=== PATIENT | female | born 1950 | race Two or more races ===

== ENCOUNTER 2023-10-08 08:30 | Inpatient (IN) | payer OTHER ==
[2023-10-08] MEDS ORDERED: TOPROL XL50 M1 (10:02)
[2023-10-08] MEDS ORDERED: PLAVIX75 MG (10:03)
[2023-10-08] MEDS ORDERED: NEBIVOLOL (10:03)
[2023-10-08 11:20] LABS: HEMATOCRIT 38.5 % (36.0-45.00); HEMOGLOBIN 13.4 g/dL (12.0-15.00); MEAN CELL VOLUME 89.4 fL (80.00-100.00); MEAN CORPUSCULAR HGB CONC 34.7 g/dl (32.0-36.0); RED BLOOD COUNT 4.31 M/uL (4.00-6.00); RED CELL DISTRIBUTION WIDTH 13.4 % (11.5-14.5)
[2023-10-08 11:25] LABS: PH,URINE 5.5 (5.0-8.0); URINE APPEARANCE Clear; URINE BILIRRUBIN Negative (NEGATIVE); URINE BLOOD Negative; URINE COLOR Dark Yellow; URINE GLUCOSE Negative (NEGATIVE); URINE LEUKOCYTE Small; URINE NITRATE Negative; URINE PROTEIN Negative (NEGATIVE)
[2023-10-08 11:29] LABS: URINE BACTERIA 86.9 uL (0.0-1933); URINE EPITHELIAL CELLS 24.5 uL (0.0-38.8); URINE RBC 7.4 uL (0.0-20.8); URINE WBC 49.1 uL (0.0-23.2)
[2023-10-08 11:37] LABS: INR 1.04; PARTIAL THROMBOPLASTIN TIME 30.6 SECONDS (22.0-34.0); PROTHROMBIN TIME 10.9 SECONDS (9.0-11.5)
[2023-10-08 11:44] LABS: ALBUMIN 3.7 gm/dL (3.4-5.0); BILIRUBIN TOTAL 1.08 mg/dL (0.3-1.2); CALCIUM 9.5 mg/dL (8.5-10.1); CREATININE SERUM 0.57 mg/dL (0.55-1.02); GFR 104.26; GLOBULINA 3.5 G/DL (2.4-3.5); POTASSIUM 4.43 mEq/L (3.5-5.1); TOTAL PROTEIN 7.2 gm/dL (6.4-8.2)
[2023-10-08 12:13] LABS: PLATELET COUNT 265 K/uL (150-450)
[2023-10-14] MEDS ORDERED: EZETIMIBE10 MG (08:10)
[2023-10-14] MEDS ORDERED: CLOPIDOGREL BIS75 MG (08:10)
[2023-10-14] MEDS ORDERED: ESCITALOPRAM OX10 MG (08:10)
[2023-10-14] MEDS ORDERED: IBANDRONATE SO150 MG (08:11)
[2023-10-14] MEDS ORDERED: XARELTO2.5 MG (08:11)
[2023-10-14] MEDS ORDERED: METOPROLOL TART50 MG (08:11)
[2023-10-14] MEDS ORDERED: NEBIVOLOL HCL5 MG (08:11)
[2023-10-14] MEDS ORDERED: CEFOXITIN SODIUM 2,000 MG VIAL IV ONE ×2 (14:04→15:45)
[2023-10-14] MEDS ORDERED: TRANEXAMIC ACID 100MG/1ML (1000MG) AMPUL IV ONE ×3 (14:04→15:45)
[2023-10-14] MEDS ORDERED: LIDOCAINE HCL 1%/Epi 20ML VIAL IJ ONE (14:10)
[2023-10-14] MEDS ORDERED: BUPIVACAINE HCL/PF 0.5% 30ML ML ONE (14:10)
[2023-10-14] MEDS ORDERED: MORPHINE SULFATE 4 MG/ML CARTRIDGE IV ONE (15:45)
[2023-10-14] MEDS ORDERED: SUGAMMADEX SODIUM 200 MG/2 ML VIAL IV ONE ×2 (18:34→19:15)
[2023-10-14] MEDS ORDERED: MORPHINE SULFATE 4 MG/ML VIAL IV PRN (18:45)
[2023-10-14] MEDS ORDERED: ONDANSETRON HCL 2 MG/ML VIAL IV PRN (18:45)
[2023-10-14] MEDS ORDERED: SODIUM CHLORIDE 0.45 % 1,000 ML IV SCH (18:45)
[2023-10-14] MEDS ORDERED: MORPHINE SULFATE 4 MG/ML VIAL IV ONE (18:45)
[2023-10-14] MEDS ORDERED: GENTAMICIN SULFATE 40 MG/ML VIAL IV SCH (18:48)
[2023-10-14 20:42] LABS: HEMATOCRIT 36.2 % (36.0-45.00); HEMOGLOBIN 12.3 g/dL (12.0-15.00); RED BLOOD COUNT 4.04 M/uL (4.00-6.00)
[2023-10-15] MEDS ORDERED: CEFAZOLIN SODIUM 1,000 MG VIAL IV SCH
[2023-10-15 08:20] LABS: HEMATOCRIT 35.4 % (36.0-45.00); HEMOGLOBIN 12.3 g/dL (12.0-15.00); MEAN CELL VOLUME 90.3 fL (80.00-100.00); MEAN CORPUSCULAR HEMOGLOBIN 31.4 pg (27.00-32.0); MEAN CORPUSCULAR HGB CONC 34.7 g/dl (32.0-36.0); PLATELET COUNT 318 K/uL (150-450); RED BLOOD COUNT 3.91 M/uL (4.00-6.00); RED CELL DISTRIBUTION WIDTH 13.2 % (11.5-14.5)
[2023-10-15] MEDS ORDERED: BACTRIM DS TAB1 EACH PO (08:21)
[2023-10-15] MEDS ORDERED: TRAM1TAB98 PO (08:21)
[2023-10-15] MEDS ORDERED: INTEGRA PLUS C1 EACH PO (08:21)
[2023-10-15] MEDS ORDERED: METOPROLOL SUCCINATE 50 MG TAB.SR.24H PO SCH (09:00)
[2023-10-15] MEDS ORDERED: SENNA/DOCUSATE SODIUM 1 TAB TABLET PO SCH (09:00)
[2023-10-15] MEDS ORDERED: BACITRACIN 28.35 GM OINT.TUBE TOP SCH (09:00)
[2023-10-15] MEDS ORDERED: IRON FUM,PS/FOLIC/BCOMP,C NO.9 1 CAP CAPSULE PO SCH (09:00)
== END 2023-10-15 12:44 | disposition home or self-care (01) | DRG 483 ==
LOC: SURG 10-14 06:45 → O/R 10-14 06:45 → SURH 10-14 08:30 → SURG 10-14 19:01
PROVIDERS: ADMIT Orthopaedic Surgery Sports Medicine; ATTEND Orthopaedic Surgery Sports Medicine
PROC: 0RRK00Z Replacement of Left Shoulder Joint with Reverse Ball and Socket Synthetic Substitute, Open Approach (ICD-10-PCS; principal; 2023-10-14 17:00)
DX: S42.92XB Fracture of left shoulder girdle, part unspecified, initial encounter for open fracture (principal); Z20.822 Contact with and (suspected) exposure to COVID-19

== ENCOUNTER 2023-10-09 09:55 | Outpatient (CLI) | payer OTHER ==
[~2023-10-09 09:55] MED LIST: NEBIVOLOL; PLAVIX75 MG; TOPROL XL50 M1
== END 2023-10-09 09:59 | disposition home or self-care (01) ==
LOC: NUCLEAR 09:55
PROVIDERS: ATTEND Internal Medicine
DX: Z01.810 Encounter for preprocedural cardiovascular examination (principal); Z95.1 Presence of aortocoronary bypass graft